=== PATIENT | female | born 1955 | race Caucasian/White ===

== ENCOUNTER 2020-05-04 02:37 | Outpatient (CLI) | payer BC, SELFPAY ==
[2020-05-04 08:33] LABS: ALT 46 U/L (14-59); AST 29 U/L (15-37); Albumin 3.8 g/dL (3.4-5.0); Alkaline Phosphatase 72 U/L (46-116); Anion Gap 8.5 mmol/L (3-11); BUN 14 mg/dL (7-18); Bilirubin, Total 0.5 mg/dL (0.2-1.0); CO2 25.5 mmol/L (21.0-32.0); CREATININE 1.07 mg/dL (0.55-1.02); Calcium 9.1 mg/dL (8.5-10.1); Calculated LDL 115 mg/dL (<100); Chloride 106 mmol/L (98-107); Cholesterol 191 mg/dL (<200); Estimated GFR 51.79 (mL/min/1.73m2); Glucose 104 mg/dL (74-106); HDL Cholesterol 55 mg/dL (40-60); Potassium 4.2 mmol/L (3.5-5.1); Sodium 140 mmol/L (136-145); TSH (W/Ref FT4) 4.64 uIU/mL (0.36-3.74); Total Protein 7.1 g/dL (6.4-8.2); Triglyceride 107 mg/dL (<150)
[2020-05-04 08:58] LABS: FREE T4 1.15 ng/dL (0.76-1.46)
[2020-05-06 04:53] LABS: Vitamin D 25 Total 20.7 ng/ml (30-100)
== END 2020-05-04 02:57 ==
PROVIDERS: PCP Internal Medicine; Visit Provider Internal Medicine
DX: R63.5 Abnormal weight gain (principal); R03.0 Elevated blood-pressure reading, without diagnosis of hypertension
CPT/HCPCS: 36415; 80053; 80061; 82306; 84439; 84443

== ENCOUNTER 2023-08-31 08:15 | Emergency (ER) | payer MEDICARE, BC, SELFPAY ==
[2023-08-31 08:19] VITALS: BP 153/87; PULSE 68; RESP 16; TEMP 36.7; O2SAT 99
[2023-08-31 08:31] VITALS: BP 153/87; PULSE 68; RESP 16; TEMP 36.7; O2SAT 99
--- NOTE | 2023-08-31 09:22 | ED.GENADUL_ITS ---
Discharge Plan Disposition Patient Disposition: Other Disposition Not Listed [place] [facility] [place] Clinical Impression: Monocular visual disturbance, Mydriasis Primary Care Provider: Nain Brambila ED Provider: Ruben Torres Home Meds and New Rx's Prescriptions: No Action atenolol 50 mg tablet 50 mg PO DAILY Patient Comments: TAKE ONE TABLET BY MOUTH EVERY DAY Discharge Instructions Additional Instructions: You [place] being [place] [facility] [place] You have elected to drive by private vehicle. Please drive directly to [facility] [place] [address] at [address] [place] [address] [place], [id number]. Should you have any difficulty during your drive. battery plate remover immediately and call 911. Please contact your primary care physician to arrange follow-up. Return to the ER immediately for any worsening or new concerning symptoms. Discharge Data Discharge Date/Time-TO BE ENTERED AT DEPARTURE: 08/31/23 10:02 Medical Decision Making 68-year-old female here with painless visual change right eye described as eye covered in a film and new onset pupillary dilatation. Of note, patient intermittently wears disposable right contact lens, typically 3 days at a time without removal. She had right lens in for the past 3 days and removed it this morning after waking and noticing symptoms. She has had no direct trauma to the eye. She does note she had a stye a few weeks ago that spontaneously ruptured and resolved. She also notes an episode a 6 months ago of flashing in her right eye that resolved. Patient has no headache. No new neurologic symptoms. No fever. Right pupil is 6 mm and minimally reactive and left 3 mm, reactive. Patient has no ptosis and no dysfunction of extraocular movements. Uncorrected visual acuity 20/25 bilaterally, 20/25 OS, 20/50 OD. Patient does note vision seems slightly blurred compared to normal. Retinal exam reveals normal vessels and optic disc. No papilledema. Icare IOP 25-28 OD, 18 OS. Concern for iridocyclitis versus angle-closure glaucoma versus less likely cranial nerve palsy. [phone] -- I called [facility] [place] to request consultation with ophthalmology for transfer. Awaiting callback. [phone] --I spoke with Dr. Barrios, ophthalmology at [facility], discussed ED presentation and course, he feels differential remains broad at this point and recommends transfer and will accept the patient for evaluation in ophthalmology clinic. He recommends patient drive to [facility] I spoke with the patient and discussed transportation options and she would prefer to drive by private vehicle. She feels safe doing this. Patient was instructed to drive immediately to [facility] to be seen by ophthalmology to complete medical screening exam. HPI General Date/Time Provider Initiated Documentation: 08/31/23 08:28 . Related Data Home Medications Medication Instructions Recorded Confirmed atenolol 50 mg tablet 50 mg PO DAILY 08/31/23 08/31/23 Allergies Allergy/AdvReac Type Severity Reaction Status Date / Time No Known Allergies Allergy Unverified 08/31/23 08:27 General Stated Complaint: EyeProblem ALEX: 4 PFSH All Active Problems (Updated 08/31/23 @ 09:53 by Ruben Torres MD) Mydriasis (Acute) Monocular visual disturbance (Acute) Social History Smoking/Tobacco Use Status: Never Smoking risk assessment performed?: Yes Drug use: Never Substance use type: does not use Housing: house Do you feel safe at home: Yes Do you feel safe in your relationship?: Yes Course Vital Signs Vital signs: Vital Signs Temperature 36.7 C 08/31/23 08:19 Pulse 68 08/31/23 08:19 Respiratory Rate 16 08/31/23 08:19 Blood Pressure 153/87 H 08/31/23 08:19 Pulse Oximetry 99 08/31/23 08:19 Temperature 36.7 C 08/31/23 08:31 Temperature Source Skin 08/31/23 08:19 Pulse 68 08/31/23 08:31 Respiratory Rate 16 08/31/23 08:31 Respiratory Effort Normal 08/31/23 08:29 Blood Pressure 153/87 H 08/31/23 08:31 Blood Pressure Position Sitting 08/31/23 08:19 Pulse Oximetry 99 08/31/23 08:31 Oxygen Delivery Method Room Air 08/31/23 08:19 Oxygen Flow Rate 0 08/31/23 08:19 Pain Level 0 08/31/23 08:31 PAWSS Have you Been Recently Intoxicated or Drunk Within the Last 30 days?: No Have you Ever Experienced Previous Episodes of Alcohol Withdrawal?: No Have you ever Experienced Withdrawal Seizures?: No Have you ever Experienced Delirium Tremens(DT)s?: No Have you ever undergone Alcohol Rehabilitation Treatment (i.e, inpt ot outpatient treatment programs)?: No Have you ever Experienced Blackouts?: No Have you ever Combined Alcohol with other Downers within the last 90 days?: No Have you ever Combined Alcohol with any other Substance of Abuse during the last 90 days?: No Positive Blood Alcohol level on Presentation? [PCS.BAL]: No Evidence of Increased Autonomic Activity (i.e. HR>120, tremor, sweating, agitation, nausea)?: No Result: 0
== END 2023-08-31 10:02 | disposition other institution (70) ==
LOC: ER 10:06
PROVIDERS: Emergency Provider Student in an Organized Health Care Education/Training Program; PCP Internal Medicine
DX: H57.04 Mydriasis (principal); H53.451 Other localized visual field defect, right eye
CPT/HCPCS: 99283

== ENCOUNTER 2024-01-04 01:17 | Outpatient (CLI) | payer MEDICARE, BC, SELFPAY ==
[2024-01-04 12:48] LABS: HCT 41.4 % (36.0-46.0); HGB 14.2 g/dL (11.2-15.7); MCHC 34.3 % (32.0-36.0); MCV 99 fL (80-95); MPV 10.8 fL (8.0-11.0); Platelet Count 228 10^3/uL (130-400); RBC 4.18 10^6/uL (3.93-5.22); RDW 12.6 % (11.7-14.6); WBC 4.93 10^3/uL (4.4-10.8)
[2024-01-04 13:05] LABS: ALT 24 U/L (14-59); AST 17 U/L (15-37); Albumin 3.6 g/dL (3.4-5.0); Alkaline Phosphatase 77 U/L (46-116); Anion Gap 6.7 mmol/L (3-11); BUN 13 mg/dL (7-18); Bilirubin, Total 0.4 mg/dL (0.2-1.0); CO2 26.3 mmol/L (21.0-32.0); CREATININE 0.9 mg/dL (0.55-1.02); Calcium 8.7 mg/dL (8.5-10.1); Calculated LDL 105 mg/dL (<100); Chloride 110 mmol/L (98-107); Cholesterol 177 mg/dL (<200); Estimated GFR 70.07 (mL/min/1.73m2); Glucose 95 mg/dL (74-106); HDL Cholesterol 58 mg/dL (40-60); Potassium 4.5 mmol/L (3.5-5.1); Sodium 143 mmol/L (136-145); Total Protein 6.6 g/dL (6.4-8.2); Triglyceride 72 mg/dL (<150)
== END 2024-01-04 01:18 | disposition home or self-care (01) ==
LOC: LOS 01:17
PROVIDERS: PCP Internal Medicine; Visit Provider Internal Medicine
DX: R79.9 Abnormal finding of blood chemistry, unspecified (principal)
CPT/HCPCS: 36415; 80053; 80061; 85027

== ENCOUNTER 2025-01-23 11:50 | Outpatient (CLI) | payer MEDICARE, BC, SELFPAY ==
[2025-01-23 13:56] LABS: ALT 33 U/L (14-59); AST 23 U/L (15-37); Albumin 3.7 g/dL (3.4-5.0); Alkaline Phosphatase 78 U/L (46-116); Anion Gap 8.4 mmol/L (3-11); BUN 15 mg/dL (7-18); Bilirubin, Total 0.5 mg/dL (0.2-1.0); CO2 26.6 mmol/L (21.0-32.0); Calcium 8.6 mg/dL (8.5-10.1); Chloride 108 mmol/L (98-107); Estimated GFR 61.36 (mL/min/1.73m2); Glucose 88 mg/dL (74-106); Potassium 4.4 mmol/L (3.5-5.1); Sodium 143 mmol/L (136-145); Total Protein 6.7 g/dL (6.4-8.2)
[2025-01-23 14:08] LABS: C-Reactive Protein < 0.50 mg/dL (<or=0.5)
== END 2025-01-23 11:51 | disposition home or self-care (01) ==
LOC: LBO 11:50
PROVIDERS: PCP Internal Medicine; Visit Provider Emergency Medical Technician, Basic
DX: Z13.228 Encounter for screening for other metabolic disorders (principal); R79.82 Elevated C-reactive protein (CRP)
CPT/HCPCS: 36415; 80053; 80061; 86140